=== PATIENT | male | born 1995 | race Caucasian/White ===

== ENCOUNTER 2017-04-15 08:29 | Emergency (ER) | payer OTHER ==
[~2017-04-15] VITALS: Ht 172.7 cm; Wt 97.0 kg
[2017-04-15 08:34] VITALS: TEMP 36.4; Ht 172.7 cm; Wt 97.0 kg
[2017-04-15] MEDS ORDERED: XYLOCAINE 1%/SOD BICARB 20 ML VIAL INFIL STA (08:45)
[2017-04-15] MEDS ORDERED: BUPIVACAINE 0.5 % 5 MG/1 ML MPF 30ML VIAL INFIL STA (08:45)
[2017-04-15] MEDS ORDERED: OXYCODONE HCL IR 5 MG TAB (IMMEDIATE RELEASE) PO STA (08:45)
--- NOTE | 2017-04-15 08:52 | EMERGENCY ROOM VISIT NOTE ---
ED Visit Note First contact with patient: 08:35 Chief Complaint: "Finger lacerations right hand table saw index/middle finger". History of Present Illness: This patient is a 21-year-old male who presents to the Emergency Department via private vehicle for evaluation of their right second and third digit laceration. Patient sustained the laceration while operating a table saw. They report a moderate amount of bleeding initially. They deny any numbness or tingling into the distal extremity. They report no decreased range of motion of the affected digit. Patient rates his current discomfort as a 2/10. Patient's Tetanus status is believed to be currently up-to -date. Medications: As noted below Allergies: None PMH: No pertinent SHx: Patient lives locally. ROS: All pertinent positive and negative review of systems are appropriately documented in the History of Present Illness. Physical Exam: VITAL SIGNS - Vital signs and nursing notes were reviewed. Stable. GENERAL -21-year-old male appearing his stated age who is in no acute distress. Communicates well with provider and answers questions appropriately. SKIN - There is a 3 cm long laceration noted on the finger pad of the right third digit as well as a 1 cm through the nail laceration of the right second digit. The edges gape apart with traction. No foreign bodies appreciated. Upon further examination there are no deep structures including vessel, tendon, or bony structures appreciated. There is no active bleeding noted. MUSCULOSKELETAL - Laceration as described above. +5/5 strength appreciated of the affected digit. Full range of motion of the affected digit. NEUROLOGIC - no neurovascular deficit. VASCULAR - Capillary refill was brisk. TOTAL REPAIRED LENGTH: 4cm IMAGING: R HAND MIN 3 VIEWS ROUTINE CLINICAL HISTORY: RIGHT HAND PAIN STATUS POST TRAUMA COMPARISON: None. DISCUSSION: There is a fracture involving the tuft of the distal phalanx of the index finger. There is an overlying soft tissue injury. There is also a probable soft tissue injury involving the distal aspect of the third finger. IMPRESSION: Fracture involving the tuft of the distal phalanx of the index finger with an overlying soft tissue injury. Electronically signed by: Elfego Au M.D. 04/15/2017 9:26 AM Dictated Date/Time: 04/15/2017 9:24 AM ED Course: Patient was seen and evaluated by myself. Risks and benefits of performing primary wound closure versus no repair were discussed with the patient who verbalizes understanding. Verbal consent was obtained prior to performing the procedure. 6 cc of 50/50 1% buffered lidocaine and irrigated again 3cc of 1% buffered lidocaine and bupivacaine was used to perform a digital block of the third and second digit of the right hand respectively. The wound was cleansed and prepped in the typical sterile fashion utilizing normal saline and Betadine. The wound was sterilely draped. Once proper anesthetization was established, the wound was further examined and demonstrated bone involvement of the right second digit. I did discuss the case with the on-call orthopedic surgeon, Dr. Kearney is technically an open fracture. The wound was copiously irrigated with normal saline and Betadine. The wound was closed using 5 simple, 5-0 nylon sutures on the right third digit and 2 simple, 5-0 nylon with the wound edges being well approximated. Patient tolerated the procedure well. No complications were met. The wound was cleansed and dressed with a xeroform dressing bulky. A metal splint was applied to the finger for comfort. [facility] Dr. Kearney on Thursday. Keflex for infection prophylaxis. Patient educated on worrisome symptoms for return visit to the Emergency Department. Patient discharged to home in good condition. In the evaluation and treatment of this patient, the following differential diagnoses were considered: Finger Fracture, Finger Dislocation, Finger Sprain, Finger Contusion, Jersey Finger, or Mallet Finger. Current/Historical Medications Scheduled Cephalexin Monohydrate (Keflex), 500 MG PO QID Allergies Coded Allergies: No Known Allergies (Unverified , 04/15/17) Vital Signs Date Time Temp Pulse Resp B/P (MAP) Pulse Ox O2 Delivery O2 Flow Rate FiO2 04/15/17 11:07 75 16 120/72 98 04/15/17 09:32 112 20 118/66 97 Room Air 04/15/17 08:34 36.4 86 18 106/71 97 Room Air Medications Administered Medications (Trade) Dose Ordered Sig/Naresh Route Start Time Stop Time Status Last Admin Dose Admin Oxycodone HCl (Roxicodone Immediate Rel Tab) 10 mg NOW STAT PO 04/15/17 08:45 04/15/17 08:47 DC 04/15/17 09:02 10 MG Cephalexin Monohydrate (Keflex Cap) 500 mg NOW STAT PO 04/15/17 10:55 04/15/17 10:56 DC 04/15/17 11:06 500 MG Departure Information Impression Primary Impression: Laceration Dispostion Home / Self-Care Condition GOOD Prescriptions Cephalexin Monohydrate (Keflex) 500 Mg Cap 500 MG PO QID for 7 Days, #28 CAP Prov: Bronson SantoroRAHEEM Toth 04/15/17 Referrals No Doctor, Assigned (PCP) Van Kearney M.D. Patient Instructions [facility] Additional Instructions Discharge Instructions: You have received 5 and 2 (7) sutures on your fingers. These sutures are NOT dissolvable and WILL need to be removed by a health care provider in 14 days. You can return to the Emergency Department or contact your Primary Care Provider to have the sutures removed. Please wear the splint for comfort until the sutures are removed. Keflex 500mg every 6 hours for infection prophylaxis. Proper wound care is essential for adequate wound healing and infection prevention. You can shower and clean the wound with soap and water. Do not scour over the wound, pat dry with a towel. Do not submerse the wound (i.e. bathe or dish wash) until the sutures have been removed. You can use an antibiotic ointment with a dressing over the wound for the next 3-4 days. After this time you may leave the wound dry and open to the air. If crust develops over the wound you can use a Q-tip to apply a 1:1 peroxide:water solution to clean the wound. Look for signs of infection of the wound including: increased pain, swelling, foul discharge, streaking, or increased temperature. If any of these are noticed you should return to the Emergency Department for further assessment and treatment. Please follow up with Dr. Kearney on Thursday. Please call for appt. Please follow up with workmans comp doctor As with any laceration you may have received nerve damage to the surrounding tissues. This damage may or may not be permanent. You should keep the area covered with sunscreen for the first 6 months to 1 year when at risk for exposure to help minimize scarring. You can also use scar reducing creams or Vitamin E oil to help minimize scarring. For pain control, you can use the following [id number] medicines (if >12 yo): - Regular strength (325mg/tab) Tylenol (acetaminophen) 2 tabs every 4-6 hours as needed. Do not exceed 12 tablets in a 24 hour period. Avoid taking more than 3 grams (3000 mg) of Tylenol per day. This includes any other sources of acetaminophen you may take on a regular basis. - Regular strength (200 mg/tab) Advil (ibuprofen) 1-2 tabs every 4-6 hours as needed. Do not exceed a dose of 3200 mg per day. Return to the emergency department if your symptoms worsen despite treatment course outlined above.
--- NOTE | 2017-04-15 09:27 | DIAGNOSTIC IMAGING REPORT ---
R HAND MIN 3 VIEWS ROUTINE CLINICAL HISTORY: RIGHT HAND PAIN STATUS POST TRAUMA COMPARISON: None. DISCUSSION: There is a fracture involving the tuft of the distal phalanx of the index finger. There is an overlying soft tissue injury. There is also a probable soft tissue injury involving the distal aspect of the third finger. IMPRESSION: Fracture involving the tuft of the distal phalanx of the index finger with an overlying soft tissue injury. Electronically signed by: Elfego Au M.D. 04/15/2017 9:26 AM Dictated Date/Time: 04/15/2017 9:24 AM
[2017-04-15] MEDS ORDERED: CEPH500C PO (10:38)
[2017-04-15] MEDS ORDERED: CEPHALEXIN MONOHYDRATE 250 MG CAP PO STA (10:55)
[2017-04-15 11:07] VITALS: BP 120/72; PULSE 75; O2SAT 98
== END 2017-04-15 11:07 | disposition home or self-care (01) ==
LOC: C.EDB 08:31 → C.EDA 11:07
DX: S61.210A Laceration without foreign body of right index finger without damage to nail, initial encounter (principal); S61.212A Laceration without foreign body of right middle finger without damage to nail, initial encounter; W31.2XXA Contact with powered woodworking and forming machines, initial encounter